=== PATIENT | male | born 1970 | race Two or more races ===

== ENCOUNTER 2023-06-20 10:46 | Outpatient (AMB) | payer MEDICAID, SELFPAY ==
--- NOTE | 2023-06-20 10:47 | HO.NEPHOV ---
HPI HPI Comments History of Present Illness Details 53-year-old man with a history of IV heroin use and obesity with CKD. He is here for follow-up. He has had extensive serological workup which has been negative thus far. He has no significant proteinuria or hematuria. Serum creatinine keeps fluctuating between 1.4 and 1.7 mg/dL. Today he has no new complaints. He used to take a combination of lisinopril and NSAIDs which he has stopped. He was taking ibuprofen up to 3 times a day. He also developed hyperkalemia while he was on ibuprofen. [facility] Social History (Updated 06/20/23 @ 10:50 by Le Weiner MA) Alcohol intake: never Patient Tobacco Use Status: Never used Tobacco Vital Signs 06/20/23 10:49 Height 5 ft 5 in Weight 211 lb BMI 35.1 BP 126/74 Blood Pressure Location Lt brachial Position Sitting Pulse 76 Pulse Source Pulse Oximeter Pulse Oximetry (%) 97 Oxygen Delivery Method Room Air Physical Exam Vital Signs: Last Vital Signs Pulse 76 06/20/23 10:49 BP 126/74 06/20/23 10:49 Pulse Ox 97 06/20/23 10:49 Oxygen Delivery Method Room Air 06/20/23 10:49 BMI result Body Mass Index 35.1 Const General: comfortable Nutritional Appearance: well nourished Orientation/consciousness: patient oriented x3 HEENT Head: No normal to inspection Mouth: moist mucous membranes Neck Neck: Yes supple and Yes no JVD Resp Auscultation: clear to auscultation bilaterally, no rales and rub present Cardio Jugular venous distension: no JVD Palpation: no palpable S3 and no palpable S4 Heart sounds: no rubs GI Palpation (GI): Soft to palpation and nontender Percussion: No Fluid wave present General: Yes no CVA tenderness Back/Spine/Pelvis Back: no CVA tenderness Skin General skin exam: no rashes or lesions noted Neuro General: patient oriented x3 Extrem General: Yes no pedal edema and No clubbing Assessment & Plan Assessment & Plan (1) CKD (chronic kidney disease): Code(s): N18.9 - Chronic kidney disease, unspecified Plan 53-year-old man with a 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 For the last 1 year has been a gradual increase in serum creatinine most likely due to natural progression. Urine sediments are bland and no significant proteinuria. No evidence of obstruction based on recent imaging studies. Goal is to slow the progression disease. Continue overt nephrotoxic agents including NSAIDs. At present blood pressure is well controlled. No changes were made to his medications Increase him to increase his p.o. fluid intake. Will continue to monitor renal function closely. Orders: Orders Blood Urea Nitrogen 3 Months N18.9 - Chronic kidney disease, unspecified Calcium 3 Months N18.9 - Chronic kidney disease, unspecified Electrolytes Today N18.9 - Chronic kidney disease, unspecified Blood Urea Nitrogen Today N18.9 - Chronic kidney disease, unspecified Creatinine Today N18.9 - Chronic kidney disease, unspecified Calcium Today N18.9 - Chronic kidney disease, unspecified Electrolytes 3 Months N18.9 - Chronic kidney disease, unspecified Creatinine 3 Months N18.9 - Chronic kidney disease, unspecified Coding Level of Care Code Est Pt Level 4 (31686) Diagnoses CKD (chronic kidney disease) N18.9 Results Reviewed Results Reviewed: As of June 13 serum creatinine 1.7 Serum electrolytes were normal. Urine protein creatinine ratio 0.11. In January of 2023 serum complements and other serologies were negative. Nephrology Results: No Data to Display
[2023-06-20 10:49] VITALS: BP 126/74; PULSE 76; O2SAT 97; BMI 35.1
== END 2023-06-20 11:11 | disposition home or self-care (01) ==
PROVIDERS: PCP Physician Assistant Medical; Visit Provider Internal Medicine Hypertension Specialist
DX: N18.9 Chronic kidney disease, unspecified (principal)
CPT/HCPCS: 99214

== ENCOUNTER → 2023-06-20 10:46 | Outpatient (BNVA) | payer MEDICAID, SELFPAY | PROVIDERS: PCP Physician Assistant Medical; Visit Provider Internal Medicine Hypertension Specialist | DX: N18.9 Chronic kidney disease, unspecified (principal) | CPT/HCPCS: 99212 ==

== ENCOUNTER 2023-09-11 09:39 | Outpatient (REF) | payer MEDICAID, SELFPAY ==
[2023-09-11 13:01] LABS: Anion Gap 11 (12-20); Blood Urea Nitrogen 21 mg/dL (9-16); Calcium 9.3 mg/dL (8.4-10.2); Carbon Dioxide 30 mmol/L (22-29); Chloride 102 mmol/L (96-108); Estimated Glomerular Filt Rate 52; Potassium 4.9 mmol/L (3.3-5.1); Sodium 138 mmol/L (135-145)
== END 2023-09-11 09:40 | disposition home or self-care (01) ==
LOC: HO.HKASLDS 09:39
PROVIDERS: Visit Provider Internal Medicine Hypertension Specialist
DX: N18.9 Chronic kidney disease, unspecified (principal)
CPT/HCPCS: 36415; 80051; 82310; 82565; 84520

== ENCOUNTER 2023-09-12 11:07 | Outpatient (AMB) | payer MEDICAID, SELFPAY ==
[2023-09-12 11:31] VITALS: BP 118/72; PULSE 69; O2SAT 94; BMI 33.7
--- NOTE | 2023-09-12 11:31 | HO.NEPHOV ---
HPI HPI Comments History of Present Illness Details 53-year-old man with a history of IV heroin use and obesity with CKD. He is here for follow-up. He has had extensive serological workup which has been negative thus far. He has no significant proteinuria or hematuria. Serum creatinine keeps fluctuating between 1.4 and 1.7 mg/dL. Today he has no new complaints. He used to take a combination of lisinopril and NSAIDs which he has stopped. He was taking ibuprofen up to 3 times a day. He also developed hyperkalemia while he was on ibuprofen. 09/12/23 Doing well Not on NSAIDS [facility] Social History Alcohol intake: never Patient Tobacco Use Status: Never used Tobacco Vital Signs 09/12/23 11:31 Height 5 ft 5 in Weight 202 lb 4 oz BMI 33.7 BP 118/72 Blood Pressure Location Lt brachial Position Sitting Pulse 69 Pulse Source Pulse Oximeter Pulse Oximetry (%) 94 Oxygen Delivery Method Room Air Physical Exam Vital Signs: Last Vital Signs Pulse 69 09/12/23 11:31 BP 118/72 09/12/23 11:31 Pulse Ox 94 09/12/23 11:31 Oxygen Delivery Method Room Air 09/12/23 11:31 BMI result Body Mass Index 33.7 Const General: comfortable Nutritional Appearance: well nourished Orientation/consciousness: patient oriented x3 HEENT Head: No normal to inspection Mouth: moist mucous membranes Neck Neck: Yes supple and Yes no JVD Resp Auscultation: clear to auscultation bilaterally, no rales and rub present Cardio Jugular venous distension: no JVD Palpation: no palpable S3 and no palpable S4 Heart sounds: no rubs GI Palpation (GI): Soft to palpation and nontender Percussion: No Fluid wave present General: Yes no CVA tenderness Back/Spine/Pelvis Back: no CVA tenderness Skin General skin exam: no rashes or lesions noted Neuro General: patient oriented x3 Extrem General: Yes no pedal edema and No clubbing Assessment & Plan Assessment & Plan (1) CKD (chronic kidney disease): Code(s): N18.9 - Chronic kidney disease, unspecified Plan 53-year-old man with a 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 For the last 1 year has been a gradual increase in serum creatinine most likely due to natural progression. Currently at baseline of 1.4 Urine sediments are bland and no significant proteinuria. No evidence of obstruction based on recent imaging studies. Goal is to slow the progression disease. Continue overt nephrotoxic agents including NSAIDs. At present blood pressure is well controlled. No changes were made to his medications Increase him to increase his p.o. fluid intake. Will continue to monitor renal function closely. Orders: Orders Basic Metabolic Panel 4 Months N18.9 - Chronic kidney disease, unspecified Creatinine Urine 4 Months N05.9 - Unspecified nephritic syndrome with unspecified morphologic changes, N18.9 - Chronic kidney disease, unspecified Total Protein Urine Random 4 Months N18.9 - Chronic kidney disease, unspecified UA and rflx microscopic 4 Months N18.9 - Chronic kidney disease, unspecified Coding Level of Care Code Est Pt Level 4 (93539) Diagnoses CKD (chronic kidney disease) N18.9 Results Reviewed Nephrology Results: Sodium 138 mmol/L (135-145) 09/11/23 Potassium 4.9 mmol/L (3.3-5.1) 09/11/23 Chloride 102 mmol/L (96-108) 24 Carbon Dioxide 30 mmol/L (22-29) H 09/11/23 BUN 21 mg/dL (9-16) H 24 Creatinine 1.43 mg/dL (0.5-1.4) H 09/11/23 Calcium 9.3 mg/dL (8.4-10.2) 24
== END 2023-09-12 11:55 | disposition home or self-care (01) ==
PROVIDERS: PCP Physician Assistant Medical; Visit Provider Internal Medicine Hypertension Specialist
DX: N18.9 Chronic kidney disease, unspecified (principal)
CPT/HCPCS: 99214

== ENCOUNTER → 2023-09-12 11:07 | Outpatient (BNVA) | payer MEDICAID, SELFPAY | PROVIDERS: PCP Physician Assistant Medical; Visit Provider Internal Medicine Hypertension Specialist | DX: N18.9 Chronic kidney disease, unspecified (principal) | CPT/HCPCS: 99212 ==

== ENCOUNTER 2024-03-18 11:16 | Outpatient (REF) | payer MEDICAID, SELFPAY ==
[2024-03-18 17:44] LABS: Appearance Urine Clear; Color Urine Dark Yellow; Glucose Urine UA Negative (Negative); Leukocyte Esterase Urine Negative (Negative); Nitrite Urine Negative (Negative); PH 6.5 (5.0-9.0); Urine Blood Negative (Negative); Urine Ketones Negative (Negative); Urine Protein Trace mg/dL (Neg-Trace)
[2024-03-18 17:51] LABS: Anion Gap 12 (12-20); Blood Urea Nitrogen 20 mg/dL (9-16); Carbon Dioxide 27 mmol/L (22-29); Chloride 103 mmol/L (96-108); Estimated Glomerular Filt Rate 44; Glucose Random 88 mg/dL (60-115); Sodium 137 mmol/L (135-145)
[2024-03-18 18:02] LABS: Creatinine Urine 160.41 mg/dL; Total Protein Urine Random 24 mg/dL (<12)
== END 2024-03-18 11:17 | disposition home or self-care (01) ==
LOC: HO.HKASLDS 11:16
PROVIDERS: Visit Provider Internal Medicine Hypertension Specialist
DX: N18.9 Chronic kidney disease, unspecified (principal); N05.9 Unspecified nephritic syndrome with unspecified morphologic changes
CPT/HCPCS: 36415; 80048; 81003; 82570; 84156

== ENCOUNTER 2024-03-19 09:33 | Outpatient (AMB) | payer MEDICAID, SELFPAY ==
[2024-03-19 09:36] VITALS: BP 144/80; PULSE 78; O2SAT 98; BMI 33.8
--- NOTE | 2024-03-19 09:36 | HO.NEPHOV_ITS ---
Vital Signs 03/19/24 09:36 Height 5 ft 5 in Weight 203 lb BMI 33.8 BP 144/80 H Blood Pressure Location Lt brachial Position Sitting Pulse 78 Pulse Source Pulse Oximeter Pulse Oximetry (%) 98 Oxygen Delivery Method Room Air Intake Visit Reasons: 4 mon follow up/ Conf Rn Eligibility Required: No Accompanied by: Self / Same As Patient Allergies dexamethasone [From Decadron] Allergy (Mild, Verified 03/19/24 09:37) Shakiness Medication List - Last Reconciled 03/19/24 by Jamel Ambrocio MD amiodarone 200 mg PO DAILY aspirin 81 mg PO DAILY cholecalciferol (vitamin D3) 10 mcg PO DAILY clonazepam 1 mg PO QID riboflavin (vitamin B2) 400 mg PO DAILY HPI Comments Details: 53-year-old man with a history of IV heroin use and obesity with CKD. He is here for follow-up. He has had extensive serological workup which has been negative thus far. He has no significant proteinuria or hematuria. Serum creatinine keeps fluctuating between 1.4 and 1.7 mg/dL. Today he has no new complaints. He used to take a combination of lisinopril and NSAIDs which he has stopped. He was taking ibuprofen up to 3 times a day. He also developed hyperkalemia while he was on ibuprofen. 09/12/23 Doing well Not on NSAIDS [facility] Social History Alcohol intake: never Patient Tobacco Use Status: Never used Tobacco Physical Exam Vital Signs: Last Vital Signs Pulse 78 03/19/24 09:36 BP 144/80 H 03/19/24 09:36 Pulse Ox 98 03/19/24 09:36 Oxygen Delivery Method Room Air 03/19/24 09:36 BMI result Body Mass Index 33.8 Results Reviewed Nephrology Results: Sodium 137 mmol/L (135-145) 03/18/24 Potassium 5.0 mmol/L (3.3-5.1) 03/18/24 Chloride 103 mmol/L (96-108) 03/18/24 Carbon Dioxide 27 mmol/L (22-29) 03/18/24 BUN 20 mg/dL (9-16) H 03/18/24 Creatinine 1.64 mg/dL (0.5-1.4) H 03/18/24 Calcium 9.0 mg/dL (8.4-10.2) 03/18/24 Urine Protein Trace mg/dL (Neg-Trace) 03/18/24 Urine Creatinine 160.41 mg/dL 03/18/24 Assessment & Plan Assessment & Plan (1) CKD (chronic kidney disease): Code(s): N18.9 - Chronic kidney disease, unspecified Category: Medical Plan 53-year-old man with a history of IV heroin use in the past has stage III chron ic disease. For the last 1 year has been a gradual increase in serum creatinine most likely due to natural progression. Currently at baseline of 1.4 Urine sediments are bland and no significant proteinuria. No evidence of obstruction based on recent imaging studies. Goal is to slow the progression disease. Continue overt nephrotoxic agents including NSAIDs. At present blood pressure is well controlled. No changes were made to his medications Increase him to increase his p.o. fluid intake. Will continue to monitor renal function closely. Orders: Orders Total Protein Urine Random 6 Months N18.9 - Chronic kidney disease, unspecified Basic Metabolic Panel 6 Months N18.9 - Chronic kidney disease, unspecified UA and rflx microscopic 6 Months N18.9 - Chronic kidney disease, unspecified Creatinine Urine 6 Months N18.9 - Chronic kidney disease, unspecified Coding Level of Care Code Est Pt Level 4 (46712) Diagnoses CKD (chronic kidney disease) N18.9
== END 2024-03-19 09:53 | disposition home or self-care (01) ==
PROVIDERS: PCP Physician Assistant Medical; Referring Provider Physician Assistant Medical; Visit Provider Internal Medicine Hypertension Specialist
DX: N18.9 Chronic kidney disease, unspecified (principal)
CPT/HCPCS: 99214

== ENCOUNTER → 2024-03-19 09:33 | Outpatient (BNVA) | payer MEDICAID, SELFPAY | PROVIDERS: PCP Physician Assistant Medical; Visit Provider Internal Medicine Hypertension Specialist | DX: N18.9 Chronic kidney disease, unspecified (principal) | CPT/HCPCS: 99212 ==

== ENCOUNTER 2024-09-16 08:40 | Outpatient (REF) | payer MEDICAID, SELFPAY ==
[2024-09-16 19:03] LABS: Appearance Urine Clear; Color Urine Dark Yellow; Glucose Urine UA Negative (Negative); Leukocyte Esterase Urine Negative (Negative); Nitrite Urine Negative (Negative); Specific Gravity - Urine 1.025 (1.005-1.025); UMIC TRIGGER UA YES; Urine Blood Negative (Negative); Urine Ketones Negative (Negative); Urine Protein 30 (1+) mg/dL (Neg-Trace)
[2024-09-16 19:05] LABS: Bacteria Urine None Seen (None Seen); Hyaline Casts Urine 0-2 /LPF (0-2); RBC Urine 0-2 /HPF (0-2); Squamous Epithelial Cell Urine 0-2 /HPF (0-2); WBC Urine 0-5 /HPF (0-5)
[2024-09-16 19:16] LABS: Anion Gap 13 (12-20); Blood Urea Nitrogen 26 mg/dL (9-16); Calcium 9.3 mg/dL (8.4-10.2); Carbon Dioxide 26 mmol/L (22-29); Chloride 106 mmol/L (96-108); Estimated Glomerular Filt Rate 59; Potassium 5.1 mmol/L (3.3-5.1); Sodium 140 mmol/L (135-145)
[2024-09-16 19:21] LABS: Creatinine Urine 126.98 mg/dL; Total Protein Urine Random 26 mg/dL (<12)
== END 2024-09-16 08:41 | disposition home or self-care (01) ==
LOC: HO.HKASLDS 08:40
PROVIDERS: Visit Provider Internal Medicine Hypertension Specialist
DX: N18.9 Chronic kidney disease, unspecified (principal)
CPT/HCPCS: 36415; 80051; 81001; 81003; 82310; 82565; 82570; 84156; 84520

== ENCOUNTER 2024-09-24 11:04 | Outpatient (AMB) | payer MEDICAID, SELFPAY ==
[2024-09-24 11:07] VITALS: BP 142/78; PULSE 69; O2SAT 97; BMI 35.4
--- NOTE | 2024-09-24 11:07 | HO.NEPHOV_ITS ---
Vital Signs 09/24/24 11:07 09/24/24 11:17 Height 5 ft 5 in Weight 213 lb BMI 35.4 BP 142/78 H 130/70 Blood Pressure Location Lt brachial Lt brachial Position Sitting Sitting Pulse 69 Pulse Source Pulse Oximeter Pulse Oximetry (%) 97 Oxygen Delivery Method Room Air Intake Visit Reasons: 6 mon follow up/ Conf Certified Flight Instructor Required: No Accompanied by: Self / Same As Patient Allergies dexamethasone [From Decadron] Allergy (Mild, Verified 09/24/24 11:09) Shakiness Medication List - Last Reconciled 09/24/24 by Jamel Ambrocio MD amiodarone 100 mg PO DAILY aspirin 81 mg PO DAILY cholecalciferol (vitamin D3) 25 mcg PO DAILY clonazepam 1 mg PO QID magnesium oxide 400 mg PO DAILY omeprazole 40 mg PO QAM riboflavin (vitamin B2) 400 mg PO DAILY venlafaxine ER 150 mg PO QAM zolpidem 10 mg PO BEDTIME PRN HPI Comments Details: 53-year-old man with a history of IV heroin use and obesity with CKD. He is here for follow-up. He has had extensive serological workup which has been negative thus far. He has no significant proteinuria or hematuria. Serum creatinine keeps fluctuating between 1.4 and 1.7 mg/dL. Today he has no new complaints. He used to take a combination of lisinopril and NSAIDs which he has stopped. He was taking ibuprofen up to 3 times a day. He also developed hyperkalemia while he was on ibuprofen. 09/12/23 Doing well Not on NSAIDS [facility] Social History Alcohol intake: never Patient Tobacco Use Status: Never used Tobacco Physical Exam Vital Signs: Last Vital Signs Pulse 69 09/24/24 11:07 BP 142/78 H 09/24/24 11:07 Pulse Ox 97 09/24/24 11:07 Oxygen Delivery Method Room Air 09/24/24 11:07 BMI result Body Mass Index 35.4 Const General: comfortable Nutritional Appearance: well nourished Orientation/consciousness: patient oriented x3 HEENT Head: No normal to inspection Mouth: moist mucous membranes Neck Neck: Yes supple and Yes no JVD Resp Auscultation: clear to auscultation bilaterally and no rales Cardio Jugular venous distension: no JVD Palpation: no palpable S3 and no palpable S4 Heart sounds: no rubs GI Palpation (GI): Soft to palpation and nontender Percussion: No Fluid wave present General: Yes no CVA tenderness Back/Spine/Pelvis Back: no CVA tenderness Skin General skin exam: no rashes or lesions noted Neuro General: patient oriented x3 Extrem General: Yes no pedal edema and No clubbing Results Reviewed Results Reviewed: Serum electrolytes were normal. Urine protein creatinine ratio 0.11. In January of 2023 serum complements and other serologies were negative. Nephrology Results: Sodium 140 mmol/L (135-145) 09/16/24 Potassium 5.1 mmol/L (3.3-5.1) 09/16/24 Chloride 106 mmol/L (96-108) 09/16/24 Carbon Dioxide 26 mmol/L (22-29) 09/16/24 BUN 26 mg/dL (9-16) H 09/16/24 Creatinine 1.28 mg/dL (0.5-1.4) 09/16/24 Calcium 9.3 mg/dL (8.4-10.2) 09/16/24 Urine Protein 30 (1+) mg/dL (Neg-Trace) H 09/16/24 Urine Creatinine 126.98 mg/dL 09/16/24 Assessment & Plan Assessment & Plan (1) CKD (chronic kidney disease): Code(s): N18.9 - Chronic kidney disease, unspecified Category: Medical Plan 53-year-old man with a 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 Currently at baseline of . Urine sediments are bland and no significant proteinuria. No evidence of obstruction based on recent imaging studies. Goal is to slow the progression disease. Continue overt nephrotoxic agents including NSAIDs. At present blood pressure is well controlled. No changes were made to his medications Increase him to increase his p.o. fluid intake. Will continue to monitor renal function closely. Orders: Orders Total Protein Urine Random 6 Months N18.9 - Chronic kidney disease, unspecified UA and rflx microscopic 6 Months N18.9 - Chronic kidney disease, unspecified Creatinine Urine 6 Months N18.9 - Chronic kidney disease, unspecified Basic Metabolic Panel 6 Months N18.9 - Chronic kidney disease, unspecified Coding Level of Care Code Est Pt Level 4 (82193) Diagnoses CKD (chronic kidney disease) N18.9
[2024-09-24 11:17] VITALS: BP 130/70
== END 2024-09-24 11:19 | disposition home or self-care (01) ==
LOC: HO.HKAS 11:04
PROVIDERS: PCP Physician Assistant Medical; Visit Provider Internal Medicine Hypertension Specialist
DX: N18.9 Chronic kidney disease, unspecified (principal)
CPT/HCPCS: 99214

== ENCOUNTER → 2024-09-24 11:04 | Outpatient (BNVA) | payer MEDICAID, SELFPAY | PROVIDERS: PCP Physician Assistant Medical; Visit Provider Internal Medicine Hypertension Specialist | DX: N18.30 Chronic kidney disease, stage 3 unspecified (principal); E66.9 Obesity, unspecified; Z68.35 Body mass index [BMI] 35.0-35.9, adult | CPT/HCPCS: 99212 ==

== ENCOUNTER 2025-03-20 12:24 | Outpatient (REF) | payer MEDICAID, SELFPAY ==
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
[2025-03-20 18:00] LABS: Appearance Urine Clear; Glucose Urine UA Negative (Negative); PH 5.5 (5.0-9.0); Specific Gravity - Urine 1.020 (1.005-1.025); UMIC TRIGGER UA YES
[2025-03-20 18:22] LABS: Anion Gap 12 (12-20); Blood Urea Nitrogen 20 mg/dL (9-16); Calcium 8.8 mg/dL (8.4-10.2); Carbon Dioxide 25 mmol/L (22-29); Chloride 106 mmol/L (96-108); Estimated Glomerular Filt Rate 43; Potassium 5.2 mmol/L (3.3-5.1); Sodium 138 mmol/L (135-145)
[2025-03-20 18:28] LABS: Total Protein Urine Random 51 mg/dL (<12)
== END 2025-03-20 12:25 | disposition home or self-care (01) ==
LOC: HO.HKASLDS 12:24
PROVIDERS: Visit Provider Internal Medicine Hypertension Specialist
DX: N18.9 Chronic kidney disease, unspecified (principal)
CPT/HCPCS: 36415; 80048; 81001; 82570; 84156

== ENCOUNTER 2025-03-25 10:52 | Outpatient (AMB) | payer MEDICAID, SELFPAY ==
[2025-03-25 10:54] VITALS: BP 100/70; PULSE 67; O2SAT 97; BMI 37.3
--- NOTE | 2025-03-25 10:54 | HO.NEPHOV ---
Vital Signs 03/25/25 10:54 Height 5 ft 5 in Weight 224 lb BMI 37.3 BP 100/70 Blood Pressure Location Lt brachial Position Sitting Pulse 67 Pulse Source Pulse Oximeter Pulse Oximetry (%) 97 Oxygen Delivery Method Room Air Intake Visit Reasons: 6mon follow-up w/labs-Conf Manager Reliability Required: No Accompanied by: Self / Same As Patient Allergies dexamethasone (From Decadron) Allergy (Mild, Verified 03/25/25 10:57) Shakiness Medication List - Last Reconciled 03/25/25 by Jamel Ambrocio MD amiodarone 100 mg PO DAILY aspirin 81 mg PO DAILY cholecalciferol (vitamin D3) 25 mcg PO DAILY clonazepam 1 mg PO QID magnesium oxide 400 mg PO DAILY melatonin 5 mg PO BEDTIME PRN metoprolol succinate ER mg PO BID omeprazole 40 mg PO QAM riboflavin (vitamin B2) 400 mg PO DAILY venlafaxine ER 150 mg PO QAM zolpidem 10 mg PO BEDTIME PRN HPI Comments Details: History of Present Illness - The patient is a 54-year-old male presenting for follow-up regarding chronic kidney disease. - Chronic kidney disease with creatinine levels fluctuating between 1.4 and 1.7 mg/dL. - No significant proteinuria detected in previous workup. - Hyperkalemia with slight increase in potassium levels. - Denies new medications, NSAID use, or changes in urination. - Current medications: metoprolol, zolpidem. - Reports adequate hydration, no alcohol or drug use. - Decline in kidney function with creatinine levels from 59% in August to 43% recently. [facility] Social History Alcohol intake: never Patient Tobacco Use Status: Never used Tobacco Physical Exam Vital Signs: BMI result Body Mass Index 37.3 Comfortable Neck supple no JVD. Lungs entry equal no rales. Heart S1-S2 heard no gallop or rub. Abdomen soft nontender. Neuro alert awake oriented. No asterixis. Extremities no edema. Results Reviewed Nephrology Results: Sodium, (135-145) 138 mmol/L 03/20/25 Potassium, (3.3-5.1) 5.2 mmol/L H 03/20/25 Chloride, (96-108) 106 mmol/L 09/19/25 Carbon Dioxide, (22-29) 25 mmol/L 03/20/25 BUN, (9-16) 20 mg/dL H 03/20/25 Creatinine, (0.5-1.4) 1.67 mg/dL H 03/20/25 Calcium, (8.4-10.2) 8.8 mg/dL 03/20/25 Urine Protein, (Neg-Trace) 100 (2+) mg/dL H 03/20/25 Urine Creatinine 224.36 mg/dL 03/20/25 Assessment & Plan Assessment & Plan (1) CKD (chronic kidney disease): Code(s): N18.9 - Chronic kidney disease, unspecified Category: Medical Plan 53-year-old man with a 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 Currently at baseline of 1.3 Cr bumped to 1.6 Urine sediments are bland and no significant proteinuria. No evidence of obstruction based on recent imaging studies. Goal is to slow the progression disease. Continue to nephrotoxic agents including NSAIDs. At present blood pressure is well controlled. No changes were made to his medications Increase him to increase his p.o. fluid intake. Repeat Renal USG Will continue to monitor renal function closely. Orders: Orders US renal BI Today N18.9 - Chronic kidney disease, unspecified Basic Metabolic Panel 2 Months N18.9 - Chronic kidney disease, unspecified Complete Blood Count Auto Diff 2 Months N18.9 - Chronic kidney disease, unspecified Creatinine Urine 2 Months N18.9 - Chronic kidney disease, unspecified Sodium Urine Random 2 Months N18.9 - Chronic kidney disease, unspecified Total Protein Urine Random 2 Months N18.9 - Chronic kidney disease, unspecified UA and rflx microscopic 2 Months N18.9 - Chronic kidney disease, unspecified Coding Level of Care Code Est Pt Level 4 (30118) Diagnoses CKD (chronic kidney disease) N18.9
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
== END 2025-03-25 11:09 | disposition home or self-care (01) ==
LOC: HO.HKAS 10:53
PROVIDERS: PCP Physician Assistant Medical; Visit Provider Internal Medicine Hypertension Specialist
DX: N18.9 Chronic kidney disease, unspecified (principal)
CPT/HCPCS: 99214

== ENCOUNTER → 2025-03-25 10:52 | Outpatient (BNVA) | payer MEDICAID, SELFPAY | PROVIDERS: PCP Physician Assistant Medical; Visit Provider Internal Medicine Hypertension Specialist | DX: N18.30 Chronic kidney disease, stage 3 unspecified (principal) | CPT/HCPCS: 99212 ==

== ENCOUNTER 2025-04-15 14:15 | Outpatient (REF) | payer MEDICAID, SELFPAY ==
--- NOTE | ~2025-04-15 | US_ITS ---
EXAMINATION: US KIDNEY BILATERAL HISTORY: N18.9 - Chronic kidney disease, unspecified TECHNIQUE: Real-time grayscale ultrasound imaging of the kidneys was performed and images were reviewed. COMPARISON: There are no prior studies available for comparison. FINDINGS: Right kidney: The right kidney measures 10.3 x 5.4 x 6.1 cm. Renal parenchymal echotexture and thickness are normal. There are no masses. There is no hydronephrosis or renal calculi. Left Kidney: The left kidney measures 10.6 x 5.2 x 3.6 cm. Renal parenchymal echotexture and thickness are normal. There are no masses. There is no hydronephrosis or renal calculi. There is perinephric stranding bilaterally. Incidental note is made of a 12 mm calcification in the right hepatic lobe. US/US renal BI IMPRESSION: Nonspecific bilateral perinephric stranding. Otherwise unremarkable renal ultrasound. Electronically signed by: Heath Pyle MD 04/15/2025 03:12 PM EDT
--- OUTSIDE RECORDS SUMMARY | 2025-04-15 18:00 | XMS_ITS ---
Author Organization [facility] Address [address] [facility] [address] [place] [address] Care Team Providers Care Gynaecological Oncologist Name Role Phone Jeferson Davis PA-C Primary Care Provider [phone] [facility] Program Status:Enrolled (Active) Start date:02/19/2025 Enrollment date:02/19/2025 Case Team Name Relationship Phone Kelsi Flores LPN(Responsible Staff) [phone] Continued Care and Services Coordination
--- OUTSIDE RECORDS SUMMARY | 2025-04-15 18:00 | XMS_ITS | Encounter Summary ---
Author Organization [facility] Address [address] [place] [address] Care Team Providers Care Churn Driller Helper Name Role Phone Jeferson Davis PA-C Primary Care Provider Encounter Details Date Type Department Care Team ([facility] Contact Info) Description 02/01/2023 Interim Notes [facility] [address] [place] [address] Nisa Montanez [place] [address] [place], [place] [phone] Social History Tobacco Use Types Packs/Day Years Used Date Smoking Tobacco: Never Smokeless Tobacco: Never Alcohol Use Standard Drinks/Week Comments No 0 (1 standard drink = 0.6 oz pur e alcohol) Social Connections Answer Date Recorded Social Connections and Isolation 1 06/06/2022 Financial Resource Strain Answer Date R ecorded Financial Resource Strain 1 2021 Stress Answer Date Recorded Stress 1 06/06/2022 Physical Activity Answer Date Recorded Physical Activity 0 02/17/2019 Food Insecurity Answer Date Recorded Food 1 06/06/2022 Transportation Needs Answer Date Record ed Transportation 1 06/06/2022 Housing Stability Answer Date Recorded Housing 1 06/06/2022 Safety and Environment Answer Date Kory rded Safety 1 06/06/2022 Utilities Answer Date Recorded Utilities 1 06/06/2022 Employment Answer Date Recorded Stress 0 09/19/2021 Sex and Gender Information Value Date Recorded Sex Assigned at Male 06/08/2017 11:03 AM PST Legal Sex Male 6:46 AM PDT Gender Identity Male 06/08/2017 11:03 AM PST Sexual Orientation Straight 06/08/2017 11 :03 AM PST COVID-19 Exposure Response Date Recorded In the last 10 days, have nuria u been in contact with someone who was confirmed or suspected to have Coronavirus/COVID-19? No / Unsure 01/19/2023 9:12 AM EDT documented as of this encounter Plan of Treatment Upcoming Encounters Date Type Department Care Team (Late st Contact Info) Description 04/16/2025 1:20 PM EDT Office Visit [facility] [address] [place] [phone] Jose Miguel Kennedy, PharmD [address] [place] [address] 05/14/2025 10:00 AM EST Office Visit [address] [phone] Faith Knight [address] [place] [address] 10/07/2025 11:00 AM EDT Office Visit [facility] [address] [place] [phone] Maxim Chavez [address] [place] [phone] documented as of this encounter Visit Diagnoses Not on filedocumented in this encounter Additional Health Concerns Assessment Noted Time PHQ-9 Depression Total Score: 15 023 3:32 PM PDT A Depression follow-up plan has been documented for the patient 02/01/2022 11:43 AM PDT documented as of this encounter Care Teams Churn Driller Helper Relationship Specialty Start Date End Date Jeferson Davis PA-C [address] [place] [address] PCP - General FAMILY MEDICINEBENJY 07/05/21 documented as of this encounter
--- OUTSIDE RECORDS SUMMARY | 2025-04-15 18:00 | XMS_ITS | Encounter Summary ---
Author Organization [facility] Address [address] [place] [address] Care Team Providers Care Talent Development Director Name Role Phone Jeferson Davis PA-C Primary Care Provider Encounter Details Date Type Department Care Team ([facility] st Contact Info) Description 12/29/2024 Patient Outreach Caring [facility] Main [address] [place] [phone] Daniela Lamb, Community Health Worker [address] [place] [phone] Social History Tobacco Use Types Packs/Day Years Used Date Smoking Tobacco: Never Smokeless Tobacco: Never Alcohol Use Standard Drinks/Week Comments No 0 (1 standard drink = 0.6 oz pur e alcohol) Social Connections Answer Date Recorded How often do you feel lonely or isolated from th ose around you? 2 11/26/2024 Financial Resource Strain Answer Date R ecorded Hard to pay for: Transportation 2 11/26/2024 Stress Answer Date Recorded Do you feel these kinds of stress these days? 2 11/26/2024 Physical Activity Answer Date Recorded Physical Activity 0 02/17/2019 Food Insecurity Answer Date Recorded Within the past 12 months, y ou worried that your food would run out before you got money to buy more. 2 11/26/2024 Transportation Needs Answer Date Record ed Hard to pay for: Transportation 2 11/26/2024 Housing Stability Answer Date Recorded Hard to pay for: Rent/Mortgage payment 2 11/26/2024 Safety and Environment Answer Date Kory rded Safety 1 10/17/2023 Utilities Answer Date Recorded Hard to pay for: Utilities 1 11/26 Employment Answer Date Recorded Stress 0 09/19/2021 Sex and Gender Information Value Date Recorded Sex Assigned at Male 06/08/2017 11:03 AM PST Legal Sex Male 6:46 AM PDT Gender Identity Male 06/08/2017 11:03 AM PST Sexual Orientation Straight 06/08/2017 11 :03 AM PST documented as of this encounter Plan of Treatment Upcoming Encounters Date Type Department Care Team (Late st Contact Info) Description 04/16/2025 1:20 PM EDT Office Visit [address] [phone] Jose Miguel Kennedy, PharmD [address] [place] [address] 05/14/2025 10:00 AM EST Office Visit [address] [phone] Faith Knight [address] [place] [phone] 10/07/2025 11:00 AM EDT Office Visit [facility] [address] [place] [phone] Maxim Chavez [address] [place] [address] documented as of this encounter Visit Diagnoses Not on filedocumented in this encounter Additional Health Concerns Assessment Noted Time PHQ-9 Depression Total Score: 10 025 8:21 AM PDT A Depression follow-up plan has been documented for the patient 02/01/2022 11:43 AM PDT documented as of this encounter Care Teams Talent Development Director Relationship Specialty Start Date End Date Jeferson Davis PA-C [address] [place] [phone] PCP - General FAMILY MEDICINEBENJY 07/05/21 documented as of this encounter
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
--- OUTSIDE RECORDS SUMMARY | 2025-04-15 18:00 | XMS_ITS | Clinical Summary ---
Author Organization [address] [place] [address] [place] [phone] Phone Care Team Providers Care Instructor Physical Name Role Phone Jeferson Davis Primary Care Provider [phone] Allergies Active Allergy Reactions Criticality Noted Date Comments Dexamethasone 09/13/2021 Nalbuphine 07/16/2020 Nubain [nalbuphine] Tramadol 09/13/2021 Medications acetaminophen (TYLENOL) 500 mg tablet Take 1.5 tablets by mouth as needed. Active amoxicillin (AMOXIL) 500 mg capsule Take 4 capsules one hour prior to dental work 3 Active aspirin 81 mg EC tablet TAKE 1 TABLET BY MOUTH DAILY 3 Active iron/vitamin B complex/min (B [id number] NERALS ORAL) Take by mouth. Active cholecalciferol (VITAMIN D-3) 25 mcg (1,000 unit) capsule Take by mouth daily. Active clonazePAM (KlonoPIN) 1 mg tablet Take 1 Tablet by mouth 4 times daily. Active omeprazole (PriLOSEC) [address] capsule Take 40 mg by mouth daily. Active riboflavin (VITAMIN B2) 50 mg tablet tablet Take 1 tablet by mouth daily. Active venlafaxine XR (EFFEXOR-XR) 150 mg 24 hr capsule Take 1 Capsule by mouth daily. Active zolpidem (AMBIEN) 10 mg tablet Take 1 Tab by mouth at bedtime as needed. Active magnesium oxide (MAG-OX) 400 mg magnesium tablet Take 1 tablet (400 mg total) by mouth 1 (one) time each day. 90 tablet 2 5 Active amiodarone (PACERONE) 200 mg tablet Take 0.5 tablets (100 mg total) by mouth 1 (one) time each day. 45 tablet 1 5 Active amiodarone (PACERONE) 200 mg tablet Take 0.5 tablets (100 mg total) by mouth 1 (one) time each day. 45 tablet 1 5 03/31/20 25 Discontinu ed(Reorder ) Active Problems Problem Noted Date Diagnosed Date Cardiomyopathy ([facility] V24, [facility] V28) 2021 Overview (06/09/2024): Last Assessment & Plan: He has had a longstanding history of a dilated cardiomyopathy with EF around 40- 45%. This remains unchanged. Continue medical therapy. Assessment & Plan (09/17/2024 5:59 PM EDT): Patient is really on no cardiomyopathy medicine in spite of a persistently mildly reduced ejection fraction. Interestingly he appears to be tolerating this without any recent heart failure hospitalizations or decompensations. Patient is vehement about not taking medications for blood pressure. As such, we will continue to monitor. Will plan to update echocardiograms every 3 to 4 years or with new symptoms. Anxiety 07/16/2020 Atrial fibrillation ([facility] V24, [facility] V28) 0 07/16/2020 Overview (06/09/2024): Last Assessment & Plan: He remains in sinus rhythm. We will continue rhythm control with amiodarone. LFTs stable from June 2023. Will update TSH. Pulmonary function testing is stable from July 2022. Continue rate control with metoprolol. He is no longer on anticoagulation at his discretion. He does understand his increased risk of having a stroke if he remains off of this and goes back into atrial fibrillation. He is willing to accept this. He does understand this is an open discussion and he can go back on it anytime. He understands the importance of continuing a rhythm control strategy with amiodarone and being off anticoagulation. He does understand if he chooses to go back on anticoagulation he may do so at any time and this is an open discussion. Assessment & Plan (09/17/2024 5:59 PM EDT): - Continue maintenance amiodarone at a reduced dose of 100 mg daily, cutting from 200 mg daily to 100 mg daily. - Continue baby aspirin for CVA prophylaxis. Subclinical hypothyroidism will hopefully improve with reduction in amiodarone dose. Would also continue to follow with PCP or endocrinology for this. Orders: ECG 12 lead Biatrial enlargement 07/16/2020 Cheilitis glandularis of superficial suppurative type 07/16/2020 Chronic back pain 07/16/2020 Endocarditis 07/16/2020 HTN (hypertension) 07/16/2020 Overview (06/09/2024): Last Assessment & Plan: 138/80 in office today, well-controlled. Continue current regimen. Assessment & Plan (09/17/2024 5:59 PM EDT): Suboptimally controlled. - Recommended initiation of antihypertensive therapy to prevent future risks of stroke, heart failure, and potential recurrence of atrial fibrillation, but the patient refused. - Advised to focus on weight loss through dietary modification and exercise. - Encouraged to increase physical activity and be more mindful of diet. Hyperlipidemia 07/16/2020 Palpitations 07/16/2020 Tricuspid regurgitation 07/16/2020 Overview (06/09/2024): 05/15/19 Echo shows severe (4+) tricuspid regurgitation Last Assessment & Plan: Known chronic issue, stable, asymptomatic. Remains moderate to severe on most recent echo. We will continue to monitor periodically. Assessment & Plan (09/17/2024 5:59 PM EDT): No evidence of RV failure on exam and cardiac exam was unremarkable overall. Monitor with surveillance echoes every 3 or 4 years or with change in exam. Encounters Date Type Department Care Team Description 03/31/2025 Telephone [facility] [address] [place] [address] Bita Cranes MD from Last 3 Months Immunizations Immunization Administration Dates Next Due Moderna SARS-CoV-2 COVID-19, mRNA, LNP-S, preservative free 06/14/2021,11/22/2020,10/25/2020 Surgical History Surgery Date Site/Laterality Comments OTHER SURGICAL HISTORY 09/16/2021 PROCEDURE: HISTORY OTHER; COMMENT: Cardioversion @ [facility] with TOTAL KNEE ARTHROPLASTY 07/27/2020 Left PROCEDURE: MA ARTHRP KNE CONDYLE&PLATU MEDIAL&LAT COMPARTMENTS OTHER SURGICAL HISTORY PROCEDURE: MA UNLISTED PROCEDURE MEDIASTINUM; COMMENT: Right lung Medical History Medical History Date Comments Atrial fibrillation (CMS/HCC V24, CMS/HCC V28) 07/16/2020 DX:Atrial fibrillation (HCC) Endocarditis 07/16/2020 DX:Endocarditis Tricuspid valve regurgitation 07/16/2020 DX :Tricuspid valve regurgitation Cheilitis glandularis of sup erficial suppurative type 07/16/2020 DX:Cheilitis glandularis of superficial suppurative type Biatrial enlargement 07/16/2020 DX:Biatrial enlargement HTN (hypertension) 07/16/2020 DX:HTN (hyper tension) Hyperlipidemia 07/16/2020 DX:Hyperlipidemi a Anxiety 07/16/2020 DX:Anxiety Palpitations 07/16/2020 DX:Palpitations Chronic back pain 07/16/2020 DX:Chronic brendon k pain Osteoarthritis DX:Osteoarthriti s Avascular necrosis of hip (C MS/HCC V24, CMS/HCC V28) DX:Avascular necrosis of hip (HCC); COMMENT: Bilateral Impaired fasting glucose DX:Impa ired fasting glucose Hx of bacterial endocarditis DX: Hx of bacterial endocarditis Family History Medical History Relation Name Comments Other: enlarged heart Brother Other: unknown heart problems Father Diabetes Mother Hyperlipidemia Mother Hypertension Mother Stroke Mother Other: unknown heart problems Sister Relation Name Status Comments Brother Father Mother Sister Social History Tobacco Use Types Packs/Day Years Used Date Smoking Tobacco: Never Smokeless Tobacco: Never Alcohol Use Standard Drinks/Week Comments No 0 (1 standard drink = 0.6 oz pur e alcohol) Sex and Gender Information Value Date Recorded Sex Assigned at Not on file Legal Sex Male 2:17 PM EST Gender Identity Not on file Sexual Orientation Not on file Obstetrics History Last Filed Vital Signs Vital Sign Reading Time Taken Comments Blood Pressure 150/100 09/03/2024 8:09 AM EST Pulse 71 09/03/2024 8:09 AM EST Temperature - - Respiratory Rate - - Oxygen Saturation 97% 09/03/2024 8:09 AM EST Inhaled Oxygen Concentration - - Weight 97.5 kg (215 lb) 09/03/2024 8:09 AM EST Height 165.1 cm (5' 5 ) 09/03/2024 8:09 AM EST Body Mass Index 35.78 09/03/2024 8:09 AM EST Plan of Treatment Health Maintenance Due Date Last Done Comments Hepatitis A Vaccines (1 of 2 - Risk 2-dose series) 1990 Social Influencers of Health Screening 06/10/2022 Pneumococcal Vaccine: 50+ Years (2 of 2 - PCV) 09/13/2022 09/13/2021 Depression Screening 07/02/2024 COVID-19 Vaccine ( season) 2025 05/02/2022, 06/14/2021, 11/22/2020, Additional history exists Influenza Vaccine (#1) 2025 , 05/02/2022, 03/24/2021, Additional history exists Hypertension/CHF/CAD Annual BMP Blood Test 09/18/2025 09/18/2024, 09/01/2024, 05/27/2024, Additional history exists Colorectal Cancer Screening: FIT-DNA (Cologuard) 10/12/2027 10/11/2024 DTaP,Tdap,and Td Vaccines (2 - Td or Tdap) 09/19/2028 09/19/2018 Cholesterol Screening (Lipid Panel) 09/18/2029 09/18/2024, 09/18/2024, 05/27/2024, Additional history exists RSV Immunization Adult Patients (1 - 1-dose 75+ series) 2046 HIV Screening Completed 04/30/2020, 03/03/2020 Hepatitis C Screening Completed 04/30/2020, 020 Zoster Vaccines Completed 06/06/2022, 09/13/2021 Hepatitis B Vaccines Completed 09/06/2023, 11/09/19 23 HIB Vaccines Aged Out No longer eligi ble based on patient's age to complete this topic HPV Vaccines Aged Out No longer eligi ble based on patient's age to complete this topic IPV Vaccines Aged Out No longer eligi ble based on patient's age to complete this topic MMR Vaccines Aged Out No longer eligi ble based on patient's age to complete this topic Meningococcal ACWY Vaccine Aged Out N o longer eligible based on patient's age to complete this topic Meningococcal B Vaccine Aged Out No l onger eligible based on patient's age to complete this topic RSV Immunization Patients Under 20 months Aged Out No longer eligible based on patient's age to complete this topic Varicella Vaccines Aged Out No longer eligible based on patient's age to complete this topic Procedures Procedure Name Priority Date/Time Associated Diagnosis Comments COMPREHENSIVE METABOLIC PANEL Routine 09/01/2024 9:53 AM EST Atrial fibrillation, unspecified type (CMS/HCC V24, CMS/HCC V28) LIPID PANEL Routine 10/17/2023 HEPATITIS C SCREENING Routine 04/30/2020 HIV SCREENING Routine 04/30/2020 from Last 3 Months or Most Recently Relevant to Health Maintenance Results * (ABNORMAL) Comprehensive metabolic panel (09/01/2024 9:53 AM EST) Sodium 140 133 - 145 mmol/L LAB CHEMISTRY METHOD 09/01/2024 12:01 PM [facility] Potassium 4.6 3.5 - 5.5 mmol/L LAB CHEMISTRY METHOD 09/01/2024 12:01 PM [facility] Comment:Hemolysis present Chloride 104 96 - 110 mmol/L LAB CHEMISTRY METHOD 09/01/2024 12:01 PM [facility] CO2 29 21 - 32 mmol/L LAB CHEMISTRY METHOD 09/01/2024 12:01 PM [facility] Anion Gap 7 3 - 11 LAB CHEMISTRY METHOD 09/01/2024 12:01 PM [facility] Glucose 88 70 - 100 mg/dL LAB CHEMISTRY METHOD 09/01/2024 12:01 PM [facility] BUN 26(H) 5 - 25 mg/dL LAB CHEMISTRY METHOD 09/01/2024 12:01 PM [facility] Creatinine 1.39(H) 0.70 - 1.30 mg/dL LAB CHEMISTRY METHOD 09/01/2024 12:01 PM [facility] eGFR 61 >=60 mL/min/1. 73m2 LAB CHEMISTRY METHOD 09/01/2024 12:01 PM [facility] Comment:Calculation based on the Chronic Kidney Disease Epidemiology Collaboration (CKD-EPI) equation refit without adjustment for race. BUN/Creatinine Ratio 18.7 LAB CHEMISTRY METHOD 09/01/2024 12:01 PM [facility] Calcium 9.3 8.5 - 10.5 mg/dL LAB CHEMISTRY METHOD 09/01/2024 12:01 PM [facility] AST (SGOT) 28 10 - 42 unit/L LAB CHEMISTRY METHOD 09/01/2024 12:01 PM [facility] Comment:Hemolysis present ALT (SGPT) 21 10 - 60 unit/L LAB CHEMISTRY METHOD 09/01/2024 12:01 PM [facility] Alkaline Phosphatase 91 42 - 121 unit/L LAB CHEMISTRY METHOD 09/01/2024 12:01 PM [facility] Total Protein 7.3 6.0 - 8.0 g/dL LAB CHEMISTRY METHOD 09/01/2024 12:01 PM [facility] Albumin 4.0 3.2 - 5.0 g/dL LAB CHEMISTRY METHOD 09/01/2024 12:01 PM [facility] Total Bilirubin 0.8 0.0 - 1.4 mg/dL LAB CHEMISTRY METHOD 09/01/2024 12:01 PM [facility] Blood Venous blood specimen / Unknown Venipuncture / Unknown 09/01/2024 9:53 AM EST 09/01/2024 11:14 AM EST Bita Carnes MD LAB BLOOD ORDERABLES Final Resu lt [facility] ([facility] [address] [place] [address], * Lipid panel (10/17/2023) LDL/HDL Ratio 0 Comment:No Interpretation, A bstracted Triglycerides 0 mg/dL Comment:No Interpretation, A bstracted Cholesterol 0 mg/dL Comment:No Interpretation, A bstracted HDL 0 mg/dL Comment:No Interpretation, A bstracted LDL Cholesterol 0 mg/dL Comment:No Interpretation, A bstracted Blood Venous blood specimen / Unknown Historical Provider LAB BLOOD ORDERABLES Marilin l Result * HIV Screening (04/30/2020) HIV Screening Abstracted Historical Provider HEALTH MAINTENANCE Final Result * Hepatitis C Screening (04/30/2020) Pathologist [facility] Hepatitis C Screening Abstracted Historical Provider HEALTH MAINTENANCE Final Result from Last 3 Months or Most Recently Relevant to Health Maintenance Insurance MEDICAID - [place] Care Teams Instructor Physical Relationship Specialty Start Date End Date Jeferson Davis PA [address] [place] [address] PCP - General 02/02/22
--- OUTSIDE RECORDS SUMMARY | 2025-04-15 18:00 | XMS_ITS | Clinical Summary ---
Author Organization [employer] [facility] Address [address] [facility] 7[address] [place] [address] Care Team Providers Care Client Portfolio Manager Name Role Phone Unavailable Primary Care Provider Unavailabl e Encounters Date Type Department Care Team Description 01/20/2025 Population Health Risk Score [facility] (C3) Department [address] [facility] [address] [place] [address] Provider, Population Health Generic from Last 3 Months Social History Tobacco Use Types Packs/Day Years Used Date Smoking Tobacco: Never Assessed Sex and Gender Information Value Date Recorded Sex Assigned at Not on file Legal Sex Male 9:31 PM EDT Gender Identity Not on file Sexual Orientation Not on file Plan of Treatment Health Maintenance Due Date Last Done Comments CT Colonography 1971 Colonoscopy 1971 Depression Screening 1971 FIT 1971 Lipid Panel 1971 SDOH Screening 1971 Sigmoidoscopy 1971 Disability Screening 1971 Alcohol/Substance Use Screening 1983 Tobacco Screening 1983 Hepatitis C Screening 1989 Pneumococcal Vaccine: 50+ Years (2 of 2 - PCV) 09/13/2022 09/13/2021 COVID-19 Vaccine ( season) 2025 05/02/2022, 06/14/2021, 11/22/2020, Additional history exists Influenza Vaccine (#1) 2025 , 05/02/2022, 03/24/2021, Additional history exists FOBT 10/11/2025 10/11/2024 Colorectal Cancer Screening 10/12/2027 FIT DNA/Cologuard 10/12/2027 10/11/2024 DTaP/Tdap/Td Vaccines (2 - Td or Tdap) 09/19/2028 09/19/2018 RSV Patients and Patients Aged 60 years or older (1 - 1-dose 75+ series) 2046 HIV Screening Completed 03/03/2020 Zoster Vaccines Completed 06/06/2022, 09/13/2021 Hepatitis B Vaccines Completed 09/06/2023, 11/09/19 23 HIB Vaccines Aged Out No longer eligi ble based on patient's age to complete this topic HPV Vaccines Aged Out No longer eligi ble based on patient's age to complete this topic Hepatitis A Vaccines Aged Out No long er eligible based on patient's age to complete this topic IPV Vaccines Aged Out No longer eligi ble based on patient's age to complete this topic Meningococcal B Vaccine Aged Out No l onger eligible based on patient's age to complete this topic Meningococcal Vaccine Aged Out No orin kd eligible based on patient's age to complete this topic RSV under 20 months Aged Out No longe r eligible based on patient's age to complete this topic Rotavirus Vaccines Aged Out No longer eligible based on patient's age to complete this topic
--- OUTSIDE RECORDS SUMMARY | 2025-04-15 18:01 | XMS_ITS | Encounter Summary ---
Author Organization [facility] Address [address] [place] [address] Care Team Providers Care Landscape Technician Name Role Phone Jeferson Davis PA-C Primary Care Provider [phone] Encounter Details Date Type Department Care Team ([facility] st Contact Info) Description 12/10/2024 Office Visit [facility] [address] [place] [phone] Daniela Lamb, Community Health Worker [address] [place] [phone] Social History Tobacco Use Types Packs/Day Years [...] AM PST documented as of this encounter Miscellaneous Notes * Patient Instructions - Daniela Lamb Community Health Worker - 12/10/2024 3:41 PM EDT If you are not able to keep your appointment please call [phone] hours before your appointment to cancel or reschedule. documented in this encounter Plan of Treatment Upcoming Encounters Date Type Department Care Team (Late st Contact Info) Description 04/16/2025 1:20 PM EDT Office Visit [address] [phone] Jose Miguel Kennedy, PharmD [address] [place] [address] 05/14/2025 10:00 AM EST Office Visit [address] [phone] Faith Knight [address] [place] [address] 10/07/2025 11:00 AM EDT Office Visit [facility] [address] [place] [phone] Maxim Chavez [address] [place] [phone] documented as of this encounter Visit Diagnoses Not on filedocumented in this encounter Additional Health Concerns Assessment Noted Time PHQ-9 Depression Total Score: 10 025 8:21 AM PDT A Depression follow-up plan has been documented for the patient 02/01/2022 11:43 AM PDT documented as of this encounter Care Teams Landscape Technician Relationship Specialty Start Date End Date Jeferson Davis PA-C [address] [place] [phone] PCP - General FAMILY MEDICINE, [place] 07/05/21 documented as of this encounter
--- OUTSIDE RECORDS SUMMARY | 2025-04-15 18:01 | XMS_ITS | Encounter Summary ---
Author Organization [facility] Address [address] [place] [address] Care Team Providers Care Tufting Supervisor Name Role Phone Jeferson Davis PA-C Primary Care Provider Encounter Details Date Type Department Care Team ([facility] st Contact Info) Description 11/26/2024 Patient Outreach Caring [facility] Main [address] [place] [phone] Daniela Lamb, Community Health Worker [address] [place] [phone] Social History Tobacco Use Types Packs/Day Years [...] Description 04/16/2025 1:20 PM EDT Office Visit [address] [phone] Jose Miguel Kennedy, PharmD [address] [place] [address] 05/14/2025 10:00 AM EST Office Visit [address] [phone] Faith Knight [address] [place] [address] 10/07/2025 11:00 AM EDT Office Visit [facility] [address] [place] [phone] Maxim Chavez [address] [place] [address] documented as of this encounter Visit Diagnoses Diagnosis Food insecurity- Primary Financial difficulties Inadequate material resources Housing instability Lack of access to transportation documented in this encounter Additional Health Concerns Assessment Noted Time PHQ-9 Depression Total Score: 10 025 8:21 AM PDT A Depression follow-up plan has been documented for the patient 02/01/2022 11:43 AM PDT documented as of this encounter Care Teams Tufting Supervisor Relationship Specialty Start Date End Date Jeferson Davis PA-C [address] [place] [phone] PCP - General FAMILY MEDICINEBENJY 07/05/21 documented as of this encounter
== END 2025-04-15 14:16 | disposition home or self-care (01) ==
LOC: HO.US 14:15
PROVIDERS: PCP Physician Assistant Medical; Visit Provider Psychiatry & Neurology Neurology
DX: N18.9 Chronic kidney disease, unspecified (principal)
CPT/HCPCS: 76775

== ENCOUNTER → 2025-04-15 14:17 | Outpatient (BNV) | payer MEDICAID, SELFPAY | PROVIDERS: PCP Physician Assistant Medical; Visit Provider Radiology Diagnostic Radiology | DX: N18.9 Chronic kidney disease, unspecified (principal) | CPT/HCPCS: 76775 ==

== ENCOUNTER 2025-05-15 13:07 | Outpatient (REF) | payer MEDICAID, SELFPAY ==
[2025-05-15 18:14] LABS: MANUAL DIFF FLAG NO
[2025-05-15 18:24] LABS: Appearance Urine Clear; Glucose Urine UA Negative (Negative); PH 5.0 (5.0-9.0); Specific Gravity - Urine 1.020 (1.005-1.025); UMIC TRIGGER UA YES
[2025-05-15 18:36] LABS: Hemoglobin 18.3 g/dl (14.0-18.0); Imm Gran Abs Auto 0.01 X10*3/uL (0.00-0.03); Imm Gran Pct Auto 0.2 % (0.0-0.4); Lymphocytes Absolute Auto 1.5 X10*3/uL (1.2-4.9); Mean Corpuscular HGB Conc 32.9 g/dl (31.0-36.0); Mean Corpuscular Hemoglobin 30.1 pg (27.0-33.0); Mean Corpuscular Volume 91.4 fL (80.0-98.0); NRBC Abs Auto 0.000 X10*3/uL (0.0-0.012); NRBC Pct Auto 0.0 /100WBC (0.0-0.2); Platelet Count 221 X10*3/uL (160-400); Red Blood Count 6.08 X10*6/uL (4.60-5.80); White Blood Count 6.0 X10*3/uL (4.8-10.8)
[2025-05-15 18:50] LABS: Anion Gap 16 (12-20); Blood Urea Nitrogen 25 mg/dL (9-16); Calcium 9.5 mg/dL (8.4-10.2); Carbon Dioxide 22 mmol/L (22-29); Chloride 105 mmol/L (96-108); Estimated Glomerular Filt Rate 46; Potassium 4.5 mmol/L (3.3-5.1); Sodium 138 mmol/L (135-145)
[2025-05-15 18:55] LABS: Total Protein Urine Random 47 mg/dL (<12)
[2025-05-15 19:10] LABS: Hematocrit 55.6 % (42.0-52.0)
--- OUTSIDE RECORDS SUMMARY | 2025-05-15 19:20 | XMS_ITS | Clinical Summary ---
Author Organization [address] [place] [address] [place] [phone] Phone Care Team Providers Care Stoner Hand Name Role Phone Jeferson Davis Primary Care Provider [phone] Allergies Active Allergy Reactions Criticality Noted Date Comments Dexamethasone 09/13/2021 Nalbuphine 07/16/2020 Nubain [nalbuphine] Tramadol 09/13/2021 Medications acetaminophen (TYLENOL) 500 mg tablet Take 1.5 tablets by mouth as needed. Active amoxicillin (AMOXIL) 500 mg capsule Take 4 capsules one hour prior to dental work 01/05/2023 Active aspirin 81 mg EC tablet TAKE 1 TABLET BY MOUTH DAILY 01/10/2023 Active iron/vitamin B complex/min (B [id number] NERALS ORAL) Take by mouth. Active cholecalciferol [...] (one) time each day. 90 tablet 2 12/12/2024 Active amiodarone (PACERONE) 200 mg tablet Take 0.5 tablets (100 mg total) by mouth 1 (one) time each day. 45 tablet 1 03/31/2025 Active Active Problems Problem Noted Date Diagnosed Date Cardiomyopathy ([facility] V24, [facility] V28) 2021 Overview (06/09/2024): Last [...] with new symptoms. Anxiety 07/16/2020 Atrial fibrillation ([facility] V24, [facility] V28) 0 07/16/2020 Overview (06/09/2024): [...] Type Department Care Team Description 03/31/2025 Telephone [facility] - [address] [place] [address] Bita Carnes MD from Last 3 Months Immunizations Immunization Administration Dates Next Due Moderna SARS-CoV-2 COVID-19, mRNA, LNP-S, preservative free 06/14/2021,11/22/2020,10/25/2020 Surgical History Surgery Date Site/Laterality Comments OTHER SURGICAL HISTORY 09/16/2021 PROCEDURE: HISTORY OTHER; COMMENT: Cardioversion @ [facility] with TOTAL KNEE ARTHROPLASTY 07/27/2020 Left PROCEDURE: MS ARTHRP KNE CONDYLE&PLATU MEDIAL&LAT COMPARTMENTS OTHER SURGICAL HISTORY PROCEDURE: MS UNLISTED PROCEDURE MEDIASTINUM; COMMENT: Right lung Medical [...] 09/13/2022 09/13/2021 Depression Screening 07/02/2024 COVID-19 Vaccine (2024- season) 2025 05/02/2022, 06/14/2021, 11/22/2020, Additional history [...] mmol/L LAB CHEMISTRY METHOD 09/01/2024 12:01 PM [facility] Potassium 4.6 3.5 - 5.5 mmol/L LAB CHEMISTRY METHOD 09/01/2024 12:01 PM [facility] Comment:Hemolysis present Chloride 104 96 - 110 mmol/L LAB CHEMISTRY METHOD 09/01/2024 12:01 PM [facility] CO2 29 21 - 32 mmol/L LAB CHEMISTRY METHOD 09/01/2024 12:01 PM [facility] Anion Gap 7 3 - 11 LAB CHEMISTRY METHOD 09/01/2024 12:01 PM [facility] Glucose 88 70 - 100 mg/dL LAB CHEMISTRY METHOD 09/01/2024 12:01 PM [facility] BUN 26(H) 5 - 25 mg/dL LAB CHEMISTRY METHOD 09/01/2024 12:01 PM [facility] Creatinine 1.39(H) 0.70 - 1.30 mg/dL LAB CHEMISTRY METHOD 09/01/2024 12:01 PM [facility] eGFR 61 >=60 mL/min/1. 73m2 LAB CHEMISTRY METHOD 09/01/2024 12:01 PM [facility] Comment:Calculation based on the Chronic Kidney Disease Epidemiology Collaboration (CKD-EPI) equation refit without adjustment for race. BUN/Creatinine Ratio 18.7 LAB CHEMISTRY METHOD 09/01/2024 12:01 PM [facility] Calcium 9.3 8.5 - 10.5 mg/dL LAB CHEMISTRY METHOD 09/01/2024 12:01 PM [facility] AST (SGOT) 28 10 - 42 unit/L LAB CHEMISTRY METHOD 09/01/2024 12:01 PM [facility] Comment:Hemolysis present ALT (SGPT) 21 10 - 60 unit/L LAB CHEMISTRY METHOD 09/01/2024 12:01 PM [facility] Alkaline Phosphatase 91 42 - 121 unit/L LAB CHEMISTRY METHOD 09/01/2024 12:01 PM [facility] Total Protein 7.3 6.0 - 8.0 g/dL LAB CHEMISTRY METHOD 09/01/2024 12:01 PM [facility] Albumin 4.0 3.2 - 5.0 g/dL LAB CHEMISTRY METHOD 09/01/2024 12:01 PM [facility] Total Bilirubin 0.8 0.0 - 1.4 mg/dL LAB CHEMISTRY METHOD 09/01/2024 12:01 PM [facility] Blood Venous blood specimen / Unknown Venipuncture / Unknown 09/01/2024 9:53 AM EST 09/01/2024 11:14 AM EST us Bita Carnes MD LAB BLOOD ORDERABLES Final Resu lt [facility] [address] [place] [address], * Lipid panel (10/17/2023) Pathologist [facility] LDL/HDL Ratio 0 Comment:No Interpretation, A bstracted Triglycerides 0 mg/dL Comment:No Interpretation, A bstracted Cholesterol 0 mg/dL Comment:No Interpretation, A bstracted HDL 0 mg/dL Comment:No Interpretation, A bstracted LDL Cholesterol 0 mg/dL Comment:No Interpretation, A bstracted Blood Venous blood specimen / Unknown [facility] Provider LAB BLOOD ORDERABLES Marilin l Result * HIV Screening (04/30/2020) [facility] HIV Screening Abstracted [facility] Provider HEALTH MAINTENANCE Final Result * Hepatitis C Screening (04/30/2020) Pathologist [facility] Hepatitis C Screening Abstracted [facility] Provider HEALTH MAINTENANCE Final Result from Last 3 Months or Most Recently Relevant to Health Maintenance Insurance MEDICAID - [place] Care Teams Stoner Hand Relationship Specialty Start Date End Date Jeferson Davis PA [address] [place] [address] PCP - General 02/02/22
== END 2025-05-15 13:08 | disposition home or self-care (01) ==
LOC: HO.HKASLDS 13:07
PROVIDERS: PCP Physician Assistant Medical; Visit Provider Internal Medicine Hypertension Specialist
DX: N18.9 Chronic kidney disease, unspecified (principal)
CPT/HCPCS: 36415; 80048; 81001; 82570; 84156; 84300; 85025

== ENCOUNTER 2025-05-20 10:57 | Outpatient (AMB) | payer MEDICAID, SELFPAY ==
[2025-05-20 11:00] VITALS: BP 126/84; PULSE 72; O2SAT 93; BMI 37.8
--- NOTE | 2025-05-20 11:00 | HO.NEPHOV ---
Vital Signs 05/20/25 11:00 Height 5 ft 5 in Weight 227 lb BMI 37.8 BP 126/84 Blood Pressure Location Lt brachial Position Sitting Pulse 72 Pulse Source Pulse Oximeter Pulse Oximetry (%) 93 Oxygen Delivery Method Room Air Intake Visit Reasons: 2mon f/u w/labs Chief Specialist Leed Required: No Accompanied by: Self / Same As Patient Allergies dexamethasone (From Decadron) Allergy (Mild, Verified 05/20/25 11:03) Shakiness Medication List - Last Reconciled 05/20/25 by Jamel Ambrocio MD amiodarone 100 mg PO DAILY aspirin 81 mg PO DAILY cholecalciferol (vitamin D3) 25 mcg PO DAILY clonazepam 1 mg PO QID magnesium oxide 400 mg PO DAILY melatonin 5 mg PO BEDTIME PRN metoprolol succinate ER mg PO BID omeprazole 40 mg PO QAM riboflavin (vitamin B2) 400 mg PO DAILY venlafaxine ER 150 mg PO QAM zolpidem 10 mg PO BEDTIME PRN HPI Comments Details: History of Present Illness - The patient is a 54-year-old male presenting for follow-up regarding chronic kidney disease. - Chronic kidney disease with creatinine levels fluctuating between 1.4 and 1.7 mg/dL. - No significant proteinuria detected in previous workup. - Hyperkalemia with slight increase in potassium levels. - Denies new medications, NSAID use, or changes in urination. - Current medications: metoprolol, zolpidem. - Reports adequate hydration, no alcohol or drug use. - Decline in kidney function with creatinine levels from 59% in August to 43% recently. 05/20/25 The patient is a 54-year-old male presenting for a follow-up visit for management of chronic kidney disease. His kidney function has recently improved, with his eGFR trending up from 43 to 46. Historical eGFR values include 44 last March and 59 in August. A kidney ultrasound performed in April showed normal kidney sizes (right 10.3 cm), with no evidence of blockage, stones, or masses. The ultrasound incidentally noted a small, non-problematic calcification in the liver. Urinalysis consistently shows a very small amount of protein, which is a chronic finding, and no hematuria. The patient reports chronic difficulty with urination but denies any swelling in his legs. He is on amlodipine, but it is unclear who the prescribing provider is, as he does not see a teacher emotionally impaired. [facility] Social History Alcohol intake: never Patient Tobacco Use Status: Never used Tobacco Physical Exam Vital Signs: Last Vital Signs Pulse 72 05/20/25 11:00 BP 126/84 05/20/25 11:00 Pulse Ox 93 05/20/25 11:00 Oxygen Delivery Method Room Air 05/20/25 11:00 BMI result Body Mass Index 37.8 Results Reviewed Results Reviewed: USG Apr 2025 Right kidney: The right kidney measures 10.3 x 5.4 x 6.1 cm. Renal parenchymal echotexture and thickness are normal. There are no masses. There is no hydronephrosis or renal calculi. Left Kidney: The left kidney measures 10.6 x 5.2 x 3.6 cm. Renal parenchymal echotexture and thickness are normal. There are no masses. There is no hydronephrosis or renal calculi. There is perinephric stranding bilaterally. Incidental note is made of a 12 mm calcification in the right hepatic lobe. Nephrology Results: Hgb, (14.0-18.0) 18.3 g/dl H 05/15/25 WBC, (4.8-10.8) 6.0 X10*3/uL 05/15/25 Plt Count, (160-400) 221 X10*3/uL 05/15/25 Sodium, (135-145) 138 mmol/L 05/15/25 Potassium, (3.3-5.1) 4.5 mmol/L 05/15/25 Chloride, (96-108) 105 mmol/L 05/15/25 Carbon Dioxide, (22-29) 22 mmol/L 05/15/25 BUN, (9-16) 25 mg/dL H 05/15/25 Creatinine, (0.5-1.4) 1.58 mg/dL H 05/15/25 Calcium, (8.4-10.2) 9.5 mg/dL Δ 05/15/25 Urine Protein, (Neg-Trace) 30 (1+) mg/dL H 05/15/25 Urine Creatinine 122.48 mg/dL 05/15/25 Renal US 04/15/25 Assessment & Plan Assessment & Plan (1) CKD (chronic kidney disease): Code(s): N18.9 - Chronic kidney disease, unspecified Category: Medical Plan 53-year-old man with a 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 Currently at baseline of 1.3 Cr bumped to 1.6 and agian down to 1.5 Urine sediments are bland and no significant proteinuria. No evidence of obstruction based on recent imaging studies. Goal is to slow the progression disease. Continue to nephrotoxic agents including NSAIDs. At present blood pressure is well controlled. No changes were made to his medications Increase him to increase his p.o. fluid intake. Orders: Orders Basic Metabolic Panel 4 Months N18.9 - Chronic kidney disease, unspecified Coding Level of Care Code Est Pt Level 4 (19737) Diagnoses CKD (chronic kidney disease) N18.9
--- OUTSIDE RECORDS SUMMARY | 2025-05-20 21:39 | XMS_ITS | Clinical Summary ---
Author Organization [address] [place] [address] [place] [phone] Phone Care Team Providers Care Software Quality Tester Name Role Phone Jeferson Davis Primary Care Provider [phone] Allergies Active Allergy Reactions Criticality Noted Date Comments Dexamethasone 09/13/2021 Nalbuphine 07/16/2020 Nubain [nalbuphine] Tramadol 09/13/2021 Medications acetaminophen (TYLENOL) 500 mg tablet Take 1.5 tablets by mouth as needed. Active amoxicillin (AMOXIL) 500 mg capsule Take 4 capsules one hour prior to dental work 01/05/2023 Active aspirin 81 mg EC tablet TAKE 1 TABLET BY MOUTH DAILY 01/10/2023 Active iron/vitamin B complex/min (B [id number] NERALS ORAL) Take by mouth. Active cholecalciferol [...] Problems Problem Noted Date Diagnosed Date Cardiomyopathy ([facility] V24, [facility] V28) 2021 Overview (06/09/2024): Last Assessment & [...] with new symptoms. Anxiety 07/16/2020 Atrial fibrillation ([facility] V24, [facility] V28) 0 07/16/2020 Overview (06/09/2024): Last Assessment [...] Type Department Care Team Description 03/31/2025 Telephone [facility] - [address] [place] [address] Bita Carnes MD from Last 3 Months Immunizations Immunization Administration Dates Next Due Moderna SARS-CoV-2 COVID-19, mRNA, LNP-S, preservative free 06/14/2021,11/22/2020,10/25/2020 Surgical History Surgery Date Site/Laterality Comments OTHER SURGICAL HISTORY 09/16/2021 PROCEDURE: HISTORY OTHER; COMMENT: Cardioversion @ [facility] with TOTAL KNEE ARTHROPLASTY 07/27/2020 Left PROCEDURE: IN ARTHRP KNE CONDYLE&PLATU MEDIAL&LAT COMPARTMENTS OTHER SURGICAL HISTORY PROCEDURE: IN UNLISTED PROCEDURE MEDIASTINUM; COMMENT: Right lung Medical [...] mmol/L LAB CHEMISTRY METHOD 09/01/2024 12:01 PM [facility] Potassium 4.6 3.5 - 5.5 mmol/L LAB CHEMISTRY METHOD 09/01/2024 12:01 PM [facility] Comment:Hemolysis present Chloride 104 96 - 110 mmol/L LAB CHEMISTRY METHOD 09/01/2024 12:01 PM [facility] CO2 29 21 - 32 mmol/L LAB CHEMISTRY METHOD 09/01/2024 12:01 PM [facility] Anion Gap 7 3 - 11 LAB CHEMISTRY METHOD 09/01/2024 12:01 PM [facility] Glucose 88 70 - 100 mg/dL LAB CHEMISTRY METHOD 09/01/2024 12:01 PM [facility] BUN 26(H) 5 - 25 mg/dL LAB CHEMISTRY METHOD 09/01/2024 12:01 PM [facility] Creatinine 1.39(H) 0.70 - 1.30 mg/dL LAB CHEMISTRY METHOD 09/01/2024 12:01 PM [facility] eGFR 61 >=60 mL/min/1. 73m2 LAB CHEMISTRY METHOD 09/01/2024 12:01 PM [facility] Comment:Calculation based on the Chronic Kidney Disease Epidemiology Collaboration (CKD-EPI) equation refit without adjustment for race. BUN/Creatinine Ratio 18.7 LAB CHEMISTRY METHOD 09/01/2024 12:01 PM [facility] Calcium 9.3 8.5 - 10.5 mg/dL LAB CHEMISTRY METHOD 09/01/2024 12:01 PM [facility] AST (SGOT) 28 10 - 42 unit/L LAB CHEMISTRY METHOD 09/01/2024 12:01 PM [facility] Comment:Hemolysis present ALT (SGPT) 21 10 - 60 unit/L LAB CHEMISTRY METHOD 09/01/2024 12:01 PM [facility] Alkaline Phosphatase 91 42 - 121 unit/L LAB CHEMISTRY METHOD 09/01/2024 12:01 PM [facility] Total Protein 7.3 6.0 - 8.0 g/dL LAB CHEMISTRY METHOD 09/01/2024 12:01 PM [facility] Albumin 4.0 3.2 - 5.0 g/dL LAB CHEMISTRY METHOD 09/01/2024 12:01 PM [facility] Total Bilirubin 0.8 0.0 - 1.4 mg/dL LAB CHEMISTRY METHOD 09/01/2024 12:01 PM [facility] Blood Venous blood specimen / Unknown Venipuncture / Unknown 09/01/2024 9:53 AM EST 09/01/2024 11:14 AM EST us Bita Carnes MD LAB BLOOD ORDERABLES Final Resu lt [facility] [address] [place] [address], * Lipid panel (10/17/2023) Pathologist [facility] LDL/HDL Ratio 0 Comment:No Interpretation, A bstracted Triglycerides 0 mg/dL Comment:No Interpretation, A bstracted Cholesterol 0 mg/dL Comment:No Interpretation, A bstracted HDL 0 mg/dL Comment:No Interpretation, A bstracted LDL Cholesterol 0 mg/dL Comment:No Interpretation, A bstracted Blood Venous blood specimen / Unknown [facility] Provider LAB BLOOD ORDERABLES Marilin l Result * HIV Screening (04/30/2020) [facility] HIV Screening Abstracted [facility] Provider HEALTH MAINTENANCE Final Result * Hepatitis C Screening (04/30/2020) Pathologist [facility] Hepatitis C Screening Abstracted [facility] Provider HEALTH MAINTENANCE Final Result from Last 3 Months or Most Recently Relevant to Health Maintenance Insurance MEDICAID - [place] Care Teams Software Quality Tester Relationship Specialty Start Date End Date Jeferson Davis PA [address] [place] [address] PCP - General 02/02/22
--- OUTSIDE RECORDS SUMMARY | 2025-05-20 21:39 | XMS_ITS | Clinical Summary ---
Author Organization [employer] Address [address] [place] [address] Care Team Providers Care Certified Credit Counselor Name Role Phone Unavailable Primary Care Provider Unavailabl e Social History Tobacco Use Types Packs/Day Years [...] Tobacco Screening 1983 Hepatitis C Screening 1989 RSV Patients and Patients Aged 60 years or older (1 - Risk 50-74 years 1-dose series) 2021 Pneumococcal Vaccine: 50+ Years (2 of 2 - PCV) 09/13/2022 09/13/2021 COVID-19 Vaccine ( season) 2025 05/02/2022, 06/14/2021, 11/22/2020, Additional history exists FOBT 10/11/2025 10/11/2024 Colorectal Cancer Screening 10/12/2027 FIT DNA/Cologuard 10/12/2027 10/11/2024 DTaP/Tdap/Td Vaccines (2 - Td or Tdap) 09/19/2028 09/19/2018 HIV Screening Completed 03/03/2020 Zoster Vaccines Completed 06/06/2022, 09/13/2021 Hepatitis B Vaccines Completed 09/06/2023, 11/09/19 Influenza Vaccine Completed 04/16/2025, , 05/02/2022, Additional history exists HIB Vaccines Aged Out No longer eligi [...]
== END 2025-05-20 11:15 | disposition home or self-care (01) ==
LOC: HO.HKAS 10:58
PROVIDERS: PCP Physician Assistant Medical; Visit Provider Internal Medicine Hypertension Specialist
DX: N18.9 Chronic kidney disease, unspecified (principal)
CPT/HCPCS: 99214

== ENCOUNTER → 2025-05-20 10:57 | Outpatient (BNVA) | payer MEDICAID, SELFPAY | PROVIDERS: PCP Physician Assistant Medical; Visit Provider Internal Medicine Hypertension Specialist | DX: N18.30 Chronic kidney disease, stage 3 unspecified (principal) | CPT/HCPCS: 99212 ==